=== PATIENT | female | born 1975 | race Caucasian/White ===

== ENCOUNTER 2022-07-14 19:26 | Emergency (ER) | payer MEDICAID ==
[~2022-07-14] VITALS: Ht 167.6 cm; Wt 68.0 kg
[2022-07-14 20:32] LABS: BASOPHILS % 0.9 % (0.0-2.0); HEMATOCRIT. 43.9 % (36.0-48.0); HEMOGLOBIN. 14.6 g/dL (12.0-16.0); LYMPHOCYTES % 31.3 % (20.0-50.0); MEAN CORPUSCULAR VOLUME 87.1 fL (81.0-99.0); MEAN PLATELET VOLUME 8.2 fl (7.4-10.4); MONOCYTES % 6.5 % (2.0-8.0); NEUTROPHILS % 59.3 % (40.0-76.0); PLATELET 324 x1000/uL (130-400); RED BLOOD CELL COUNT 5.04 mill/uL (4.2-5.4); RED CELL DISTRIBUTION WIDTH 14.8 % (11.6-14.6)
[2022-07-14 20:36] LABS: CHLORIDE 108 mEq/L (98-107)
[2022-07-14 20:54] LABS: HCG SCREEN NEGATIVE
[2022-07-15] VITALS: BP 110/69
== END 2022-07-15 01:48 | disposition home or self-care (01) ==
LOC: ER 19:26
DX: R07.89 Other chest pain (principal); R06.02 Shortness of breath; M79.10 Myalgia, unspecified site
CPT/HCPCS: 36415; 71045; 80053; 83880; 84484; 84703; 85025; 93005; 99285

== ENCOUNTER 2024-02-22 17:36 | Emergency (ER) | payer MEDICAID ==
[~2024-02-22] VITALS: Ht 162.6 cm; Wt 80.0 kg
[2024-02-22 18:06] VITALS: TEMP 36.72516
[2024-02-22] MEDS: MORPHINE SULFATE 2 MG/ML INJ (NOT FOR IM USE) IV ONE (18:30)
[2024-02-22] MEDS: BACITRACIN ZINC OINT UDPKT TOP NR (18:38)
[2024-02-22] MEDS ORDERED: IBUP-2030 MT (19:57)
[2024-02-22 20:45] VITALS: BP 121/66; PULSE 66; RESP 14; O2SAT 100
== END 2024-02-22 20:30 | disposition home or self-care (01) ==
LOC: ER 17:36
DX: T23.102A Burn of first degree of left hand, unspecified site, initial encounter (principal); T23.101A Burn of first degree of right hand, unspecified site, initial encounter; T31.0 Burns involving less than 10% of body surface; X11.8XXA Contact with other hot tap-water, initial encounter; Y93.89 Activity, other specified; Y92.89 Other specified places as the place of occurrence of the external cause; Y99.8 Other external cause status
CPT/HCPCS: 16000; 96374; 99283; J2270; Z7610 ×4

== ENCOUNTER 2024-12-15 21:48 | Emergency (ER) | payer MEDICAID ==
[~2024-12-15] VITALS: Ht 152.4 cm; Wt 59.0 kg
[~2024-12-15 21:48] MED LIST: IBUP-2030 MT
[2024-12-15 21:52] VITALS: O2SAT 100
[2024-12-15 22:01] VITALS: BP 120/79; PULSE 82; RESP 18; TEMP 36.7; O2SAT 98
== END 2024-12-16 02:24 | disposition left against medical advice (07) ==
LOC: ER 21:48
DX: R20.0 Anesthesia of skin (principal); R22.1 Localized swelling, mass and lump, neck; Z79.899 Other long term (current) drug therapy
CPT/HCPCS: 99281; 99282